=== PATIENT | male | born 1950 | race Caucasian/White ===

== ENCOUNTER 2018-11-14 07:01 | Emergency (ER) | payer OTHER ==
[2018-11-14 07:30] VITALS: BP 140/79; PULSE 72; TEMP 97.5; BMI 25.0
[2018-11-14] MEDS ORDERED: DIPHTH,PERTUSS(ACELL),TET 0.5 ML DISP.SYRIN IM ONE (08:24)
--- NOTE | 2018-11-14 08:35 | PDOC ---
History of Present Illness - General Chief Complaint: Injury Stated Complaint: L HAND INJURY Time Seen by Provider: 11/14/18 08:21 History Source: Patient Exam Limitations: No Limitations - History of Present Illness Initial Comments: 11/14/18 08:24 2 Days ago crushed left thumb in bathroom door. As morning woke up with swelling , redness and states had purulent drainage from the base. Occurred: reports: other Severity: reports: mild, moderate Pain Location: reports: upper extremity (left thumb) Modifying Factors: improves with: None Loss of Consciousness: no loss of consciousness Past History - Travel Traveled outside of the country in the last 30 days: No Close contact w/someone who was outside of country & ill: No - Past Medical History Allergies/Adverse Reactions: Allergies Allergy/AdvReac Type Severity Reaction Status Date / Time Penicillins Allergy Unknown Hives Verified 11/14/18 08:38 Home Medications: Ambulatory Orders Apixaban [Eliquis] 5 mg PO BID 11/14/18 Cholecalciferol (Vitamin D3) [Vitamin D3] 1,000 unit PO DAILY 11/14/18 Magnesium Oxide [Magnesium] 500 mg PO DAILY 11/14/18 Nadolol [Corgard -] 20 mg PO BID 11/14/18 Psyllium [Metamucil (Sugar-Free) -] 5.85 gm PO BID 11/14/18 Rosuvastatin Calcium [Crestor] 2.5 mg PO DAILY 11/14/18 Tiotropium Chambers [Spiriva] 1 inh IH BID 11/14/18 Cardiac Disorders: Yes ("elevated heart rate") COPD: No HTN: Yes - Immunization History Immunization Up to Date: Yes - Suicide/Smoking/Psychosocial Hx Smoking History: Never smoked Hx Alcohol Use: No Drug/Substance Use Hx: No Review of Systems - Review of Systems Able to Perform ROS?: Yes Is the patient limited Latvian proficient: Yes Constitutional: Yes: See HPI. No: Symptoms Reported, Fever, Malaise HEENTM: No: Symptoms Reported Musculoskeletal: Yes: Symptoms Reported, See HPI, Joint Swelling Integumentary: Yes: Symptoms Reported, See HPI, Erythema (with some fluctuance at epinychium of left thumb) All Other Systems: Reviewed and Negative *Physical Exam - Vital Signs Last Vital Signs Temp Pulse Resp BP Pulse Ox 97.5 F L 72 18 140/79 96 11/14/18 07:11 11/14/18 07:11 11/14/18 07:11 11/14/18 07:11 11/14/18 07:11 - Physical Exam General Appearance: Yes: Nourished, Appropriately Dressed. No: Apparent Distress HEENT: positive: [place], Normal ENT Inspection, TMs Normal, Pharynx Normal Neck: positive: Tender, Supple Extremity: positive: Normal Capillary Refill, Normal Range of Motion (full range of motion without pain or swelling at IP joint, subungual hematoma is faint and nailbed is not fluctuant or tender with touch.). negative: Normal Inspection Integumentary: positive: Normal Color, Erythema, Other (left distal thumb with mild erythema at eponychia M, without fluctuance, purulent drainage, or exquisite tenderness) Neurologic: positive: cs associate II-XII NML intact, Fully Oriented, Alert, Normal Mood/ Affect, Normal Response, Motor Strength 5/5 Moderate Sedation - Procedure Monitoring Vital Signs: Procedure Monitoring Vital Signs Temperature 97.5 F L 11/14/18 07:11 Pulse Rate 72 11/14/18 07:11 Respiratory Rate 18 11/14/18 07:11 Blood Pressure 140/79 11/14/18 07:11 O2 Sat by Pulse Oximetry (%) 96 11/14/18 07:11 *DC/Admit/Observation/Transfer Diagnosis at time of Disposition: Crushing injury of finger, left - Discharge Dispostion Disposition: HOME Condition at time of disposition: Stable Decision to Admit order: No - Referrals Referrals: Noé Barrera MD [Primary Care Provider] - - Patient Instructions Printed Discharge Instructions: DI for Crush Injury Additional Instructions: Rest, keep hand elevated Avoid heavy lifting or strenuous activity until healed Soak finger every 2-3 hours while awake for the next 2-3 days to keep continue to allow drainage May use ibuprofen or Tylenol for pain relief Followup with private physician in one to 2 days for wound check as needed Call [facility] FOR WORSEN SWELLING , REDNESS, PUS FROM WOUND = [phone] YOUR TETANUS / DIPHTHERIA/ PERTUSSIS BOOSTER WAS UPDATED TODAY ] Return immediately to emergency department or private doctor's for worsening redness, swelling, pain, streaking - Post Discharge Activity
== END 2018-11-14 09:06 | disposition home or self-care (01) ==
LOC: JER 07:01 → JERFT 07:01
PROC: 3E0234Z Introduction of Serum, Toxoid and Vaccine into Muscle, Percutaneous Approach (ICD-10-PCS; principal; 2018-11-14)
DX: S67.02XA Crushing injury of left thumb, initial encounter (principal); W20.8XXA Other cause of strike by thrown, projected or falling object, initial encounter; Y93.89 Activity, other specified; Y92.89 Other specified places as the place of occurrence of the external cause
CPT/HCPCS: 73140-TC-LT-FY; 90471; 90715; 99281-25